=== PATIENT | male | born 1965 | race Caucasian/White ===

== ENCOUNTER → 2018-12-21 | Outpatient (CLI) | payer MEDICARE ==
--- NOTE | 2018-12-21 12:49 | FL ---
Modified barium swallow. HISTORY: Dysphagia. Modified barium swallow was performed with the department of speech pathology. The patient was prese nted with various consistencies of barium. There is no evidence for aspiration or penetration. Full report is to follow from the department of speech pathology. 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
== END ==
LOC: RADFLMAIN 10:27
PROVIDERS: ATTEND Otolaryngology
DX: R13.10 Dysphagia, unspecified (principal)
CPT/HCPCS: 74230

== ENCOUNTER → 2019-05-15 | Outpatient (CLI) | payer MEDICARE ==
[2019-05-15 15:59] LABS: Chol/HDL Ratio 3.17; LDL Cholesterol,Calculated 46.6 mg/dL (0.0-131.0); VLDL Calculation 18.4 mg/dL (5.00-40.00)
== END | disposition home or self-care (01) ==
LOC: LABWHC1 08:36
PROVIDERS: ATTEND Nurse Practitioner Adult Health
DX: E78.2 Mixed hyperlipidemia (principal)
CPT/HCPCS: 36415; 80061; 84450; 84460

== ENCOUNTER → 2021-05-02 | Outpatient (CLI) | payer MEDICARE ==
--- NOTE | 2021-05-05 09:56 | CT ---
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 Delayed scanning through the patient's legs. Coronal/sagittal reconstructions performed. 3-D reconstructions generated on a de dicated independent workstation. CT DLP: 1623.7 mGycm Automated exposure control for dose reduction was used. FINDINGS: Heart normal size without pericardial effusion. Lung bases clear without pleural effusion. Arterial phase imaging of the liver, gallbladder, adrenal glands, kidneys, spleen, and pancreas withi n normal limits. Previous ventral abdominal wall mesh repair. No dilated small bowel, free fluid, or free air. No mesenteric or retroperitoneal lymphadenopathy. Normal appendix. Mild stool burden. No pericolic inflammatory change. Prostate gland measures mildly enlarged at 4.7 cm wide. Multiple pelvic fluid ligaments. No abnormal fluid collection in the pelvis or pelvic lymphadenopathy. Bones: Mild degenerative change of the hips. Osteopenia. Facet arthropathy lower lumbar spine. VASCULATURE: Mild atherosclerotic narrowing at the origin of the bilateral renal arteries. There is an accessory l eft renal artery noted. Possible moderate atherosclerotic narrowing at the origin of the CHAR which re liz patent. There is a distal abdominal bifemoral bypass graft noted. There is occlusion of the [place] left commo n iliac artery but with reconstitution of some of the left internal iliac artery branches. Patent but diminutive [place] right common iliac artery supplies the right internal iliac artery with occlusion of the [place] right external iliac artery. RIGHT: There is mild circumferential narrowing throughout the right iliac bypass graft. [id number] atherosclerotic narrowing at the distal common femoral artery anastomosis. There may be moderate to severe narrowing at the origin of the profunda femoral artery which otherwise remains patent. Mild atherosclerotic narrowing at SFA at the adductor hiatus. Additional scattered mild atherosclerotic calcifications throughout the tibial peroneal trunk and tri furcation vessels. Peroneal artery becomes diminutive at the mid leg and is seen to just above the ankle. Anterior tibia l artery becomes diminutive distal third leg. Runoff is seen via the posterior and anterior tibial ar teries. LEFT: THE iliac artery bypass graft is patent. Mild narrowing at the distal common femoral artery anastomos is. Profunda femoral artery is patent. Mild atherosclerotic narrowing SFA at the adductor hiatus. Popliteal artery is patent. Trifurcation vessels are patent. Mild atherosclerotic narrowing tibial peroneal trunk. Both anterior tibial and peroneal arteries become diminutive at the upper third leg level. There is o pacification just above the ankle. There is runoff via the posterior tibial artery. IMPRESSION: 1. Distal abdominal aortobifemoral bypass graft remains patent. There is development of intimal thick ening causing mild circumferential narrowing throughout the patent right iliac graft. 2. Right: Mild to moderate narrowing at the right common femoral artery anastomosis. Possible moderat e to severe narrowing at the origin of the right profunda femoral artery which otherwise remains [place]. 3. Right: Anterior tibial artery becomes diminutive at the distal third leg. Runoff is seen via the p osterior and anterior tibial arteries. 4. Left: Mild atherosclerotic narrowing at the common femoral artery anastomosis. 5. Left: Both anterior tibial and peroneal arteries become diminutive at the upper third lead level w ith opacification to just above the ankle. There is runoff via the posterior tibial artery.
== END | disposition home or self-care (01) ==
LOC: RADCTMAIN 15:49
PROVIDERS: ATTEND Thoracic Surgery (Cardiothoracic Vascular Surgery)
DX: I70.212 Atherosclerosis of native arteries of extremities with intermittent claudication, left leg (principal); I77.89 Other specified disorders of arteries and arterioles
CPT/HCPCS: 82565; 84520; 75635; 36415; Q9967

== ENCOUNTER → 2022-11-18 | Outpatient (CLI) | payer MEDICARE ==
--- NOTE | 2022-11-18 11:05 | XR ---
EXAMINATION TYPE: XR bone survey complete DATE OF EXAM: 11/18/2022 COMPARISON: CT with runoff 2020. HISTORY: Monoclonal gammopathy. Bony calvarium : 2 views of the bony calvarium demonstrate. No lytic cranial lesion. Chest x-ray: No definitive suspicious focal Lytic rib lesion. Lungs are clear. Spine: Two views of the cervical, thoracic and lumbar spines are submitted. Numerous surgical coils from ventral wall hernia repair surgery overlie the mid to lower abdomen. No definitive suspicious fo hemant lytic lesion in the spine. Vascular calcification and phleboliths overlie the pelvis. There is lo ss of normal cervical curvature. There is moderate spurring and disc space narrowing C5-C6 level. PELVIS: Single view of the pelvis demonstrates. Slightly suboptimal due to lucency from overlying lizbet wel gas. No definitive focal destructive lytic lesion. Vascular calcification and phlebolith overlie the pelvis. Surgical clips bilateral groin region are seen. UPPER EXTREMITIES: Single view of the bilateral upper extremities. No definitive suspicious focal cor tical lytic lesion is present. LOWER EXTREMITIES: 2 views of the lower extremities. No definitive suspicious new focal lytic cortic al lesion. IMPRESSION: No definitive focal suspicious lytic osseous lesion.
[2022-11-18 16:28] LABS: Basophils # (A) 0.11 X 10*3/uL (0.00-0.10); Basophils % (A) 1.4 %; Eosinophils # (A) 0.52 X 10*3/uL (0.04-0.35); Eosinophils % (A) 6.4 %; HCT 44.4 % (39.6-50.0); HGB 14.6 g/dL (13.0-17.0); Immature Grans, Automated 0.4 %; Lymphocytes # (A) 1.45 X 10*3/uL (0.90-5.00); Lymphocytes % (A) 17.9 %; MCH 28.7 pg (27.0-32.0); MCHC 32.9 g/dL (32.0-37.0); MCV 87.4 fL (80.0-97.0); Mean Platelet Volume 10.7 fL (9.5-12.2); Monocytes # (A) 0.65 X 10*3/uL (0.20-1.00); NRBC Per 100 WBC 0 /100 WBCS (0.0-0.0); Neutrophils # (A) 5.36 X 10*3/uL (1.80-7.70); Neutrophils % (A) 65.9 %; Platelet Count 230 X 10*3/uL (140-440); RBC 5.08 X 10*6/uL (4.40-5.60); WBC 8.12 X 10*3/uL (4.50-10.00)
[2022-11-18 17:03] LABS: African American GFR (CKD) 76.8 (60.0-200.0); Anion Gap 8.9 mmol/L (10.00-18.00); BUN/Creat Ratio 7.08 Ratio (12.00-20.00); Blood Urea Nitrogen 8.5 mg/dL (9.0-27.0); Calcium 9.6 mg/dL (8.7-10.3); Carbon Dioxide 29.1 mmol/L (20.0-27.5); Non-African American GFR(CKD) 66.3 (60.0-200.0); Potassium 4.4 mmol/L (3.5-5.5)
== END | disposition home or self-care (01) ==
LOC: LABWHC1 08:52
PROVIDERS: ATTEND Internal Medicine Hematology & Oncology
DX: D47.2 Monoclonal gammopathy (principal); I12.9 Hypertensive chronic kidney disease with stage 1 through stage 4 chronic kidney disease, or unspecified chronic kidney disease; E78.5 Hyperlipidemia, unspecified; N18.9 Chronic kidney disease, unspecified; E55.9 Vitamin D deficiency, unspecified; N40.1 Benign prostatic hyperplasia with lower urinary tract symptoms
CPT/HCPCS: 36415; 77075; 80048; 82306; 83036; 84153; 84450; 84460; 85025

== ENCOUNTER 2024-11-07 10:29 | Emergency (ER) | payer MEDICARE, OTHER ==
[2024-11-07 10:45] VITALS: TEMP 98.9
--- NOTE | 2024-11-07 10:59 | ED ---
Recheck HPI - General Chief Complaint: Recheck/Abnormal Lab/Rx Stated Complaint: low bp Time Seen by Provider: 11/07/24 10:41 Source: patient, RN notes reviewed Mode of arrival: ambulatory Limitations: no limitations - History of Present Illness Initial Comments: This is a 59-year-old male with history of COPD, DM, and hypertension, femoral artery bypass presenting with for orthostasis for the past several weeks. Patient states he suffered a solitary syncopal episode several weeks ago with no subsequent medical evaluation at that time. Patient states he spoke to his PCP Dr. Marcelo who advised holding on use of BP meds (Lopressor, metoprolol) if blood pressure is reading low for the day. Patient states he has an appointment with Dr. Lubin 3 weeks. Patient otherwise denies significant cardiac history or history of AMI. Currently endorses some dyspnea but denies chest pain. Denies fever, chills, BLE edema, abdominal pain, N/V/D. Onset/Timin -: week(s) - Related Data Home Medications Medication Instructions Recorded Confirmed Aspirin EC [Ecotrin] 325 mg PO DAILY 11/07/24 11/07/24 Atorvastatin [Lipitor] 20 mg PO DAILY 11/07/24 11/07/24 Cholecalciferol [Vitamin D3 (25 25 mcg PO DAILY 11/07/24 11/07/24 Mcg = 1000 Iu)] Metoprolol Tartrate [Lopressor] 50 mg PO BID 11/07/24 11/07/24 cilostazoL [Pletal] 100 mg PO BID 11/07/24 11/07/24 lisinopriL [Zestril] 20 mg PO DAILY 11/07/24 11/07/24 Allergies Allergy/AdvReac Type Severity Reaction Status Date / Time Iodinated Contrast Media AdvReac Unknown Verified 11/07/24 11:22 oxycodone [From Percocet] AdvReac Chest Pain Verified 11/07/24 11:22 Review of Systems ROS Statement: Those systems with pertinent positive or pertinent negative responses have been documented in the HPI. ROS Other: All systems not noted in ROS Statement are negative. Past Medical History Past Medical History: COPD, Diabetes Mellitus Past Surgical History: Coronary Bypass/CABG Smoking Status: Former smoker Past Alcohol Use History: Rare Past Drug Use History: None Reported General Exam Limitations: no limitations General appearance: alert, in no apparent distress Head exam: Present: atraumatic, normocephalic, normal inspection Eye exam: Present: normal appearance, PERRL, EOMI. Absent: scleral icterus, conjunctival injection, periorbital swelling ENT exam: Present: normal exam, mucous membranes moist Neck exam: Present: normal inspection. Absent: tenderness, meningismus, lymphadenopathy Respiratory exam: Present: normal lung sounds bilaterally. Absent: respiratory distress, wheezes, rales, rhonchi, stridor, accessory muscle use, decreased breath sounds, prolonged expiratory Cardiovascular Exam: Present: regular rate, normal rhythm, normal heart sounds. Absent: systolic murmur, diastolic murmur, rubs, gallop, clicks GI/Abdominal exam: Present: soft, normal bowel sounds. Absent: distended, tende rness, guarding, rebound, rigid, pulsatile mass Extremities exam: Present: normal inspection, full ROM, normal capillary refill. Absent: tenderness, pedal edema, joint swelling, calf tenderness Back exam: Present: normal inspection Neurological exam: Present: alert, oriented X3, CN II-XII intact Psychiatric exam: Present: normal affect, normal mood Skin exam: Present: warm, dry, intact, normal color. Absent: rash Course Vital Signs 11/07/24 11/07/24 11/07/24 10:41 11:45 13:04 Temperature 98.9 F Pulse Rate 124 H 84 Pulse Rate [ 111 H Right Sitting Pulse Oximetery ] Pulse Rate [ 117 H Right Standing Pulse Oximetery ] Pulse Rate [ 99 Right Supine Pulse Oximetery ] Respiratory 20 18 Rate Blood Pressure 141/91 122/80 Blood Pressure 119/76 [Right Arm Sitting] Blood Pressure 91/69 [Right Arm Standing] Blood Pressure 115/75 [Right Arm Supine] O2 Sat by Pulse 98 97 Oximetry 11/07/24 13:35 Temperature Pulse Rate Pulse Rate [ 93 Right Sitting Pulse Oximetery ] Pulse Rate [ 109 H Right Standing Pulse Oximetery ] Pulse Rate [ 81 Right Supine Pulse Oximetery ] Respiratory Rate Blood Pressure Blood Pressure 151/81 [Right Arm Sitting] Blood Pressure 134/88 [Right Arm Standing] Blood Pressure 129/79 [Right Arm Supine] O2 Sat by Pulse Oximetry Medical Decision Making - Medical Decision Making Was pt. sent in by a medical professional or institution (, PA, CHEMISTRY SPECIALIST, urgent care, hospital, or skilled nursing...) When possible be specific @ -[No] Did you speak to anyone other than the patient for history (EMS, parent, family, police, friend...)? What history was obtained from this source @ -[No] Did you review nursing and triage notes (agree or disagree)? Why? @ -[I reviewed and agree with nursing and triage notes] Were old charts reviewed (outside hosp., previous admission, EMS record, old EKG, old radiological studies, urgent care reports/EKG's, skilled nursing records)? Report findings @ -[No old charts were reviewed] Differential Diagnosis (chest pain, altered mental status, abdominal pain women, abdominal pain men, vaginal bleeding, weakness, fever, dyspnea, syncope, headach e, dizziness, GI bleed, back pain, seizure, CVA, palpatations, mental health, musculoskeletal)? @ -Differential Dizziness: Benign paroxysmal positional Vertigo, Meniere's disease, otitis media, acoustic neuroma, vertebrobasilar insufficiency, cerebellar stroke, encephalitis, hypovolemic, arrhythmia, coronary artery syndrome, anemia, this is not meant to be an all-inclusive list EKG interpreted by me (3pts min.). @ -Sinus tachycardia without ST deviation or T wave inversion. Ventricular rate 102 bpm, THAIS 179 ms, QRS 78 ms, QTc 386 ms. X-rays interpreted by me (1pt min.). @ -[None done] CT interpreted by me (1pt min.). @ -[None done] U/S interpreted by me (1pt. min.). @ -[None done] What testing was considered but not performed or refused? (CT, X-rays, U/S, labs)? Why? @ -[None] What meds were considered but not given or refused? Why? @ -[None] Did you discuss the management of the patient with other professionals (professionals i.e. , PA, CHEMISTRY SPECIALIST, lab, RT, psych nurse, child protective services social worker, fruit tester, teacher, plant protection officer, manager case management)? Give summary @ -[No] Was smoking cessation discussed for >3mins.? @ -[No] Was critical care preformed (if so, how long)? @ -[No] Were there social determinants of health that impacted care today? How? (Homelessness, low income, unemployed, alcoholism, drug addiction, transportation, low edu. Level, literacy, decrease access to med. care, [facility], rehab)? @ -[No] Was there de-escalation of care discussed even if they declined (Discuss DNR or withdrawal of care, Hospice)? DNR status @ -[No] What co-morbidities impacted this encounter? (DM, HTN, Smoking, COPD, CAD, Cancer, CVA, ARF, Chemo, Hep., AIDS, mental health diagnosis, sleep apnea, morbid obesity)? @ -[None] Was patient admitted / discharged? Hospital course, mention meds given and route, prescriptions, significant lab abnormalities, going to OR and other pertinent info. @ -[hospital course] Undiagnosed new problem with uncertain prognosis? @ -[No] Drug Therapy requiring intensive monitoring for toxicity (Heparin, Nitro, Insulin, Cardizem)? @ -[No] Were any procedures done? @ -[No] Diagnosis/symptom? @ -[default] Acute, or Chronic, or Acute on Chronic? @ -Acute Uncomplicated (without systemic symptoms) or Complicated (systemic symptoms)? @ -Complicated Side effects of treatment? @ -[No] Exacerbation, Progression, or Severe Exacerbation? @ -[No] Poses a threat to life or bodily function? How? (Chest pain, [place], [place], pneumonia, PE, COPD, DKA, ARF, appy, cholecystitis, CVA, Diverticulitis, Homicidal, Suicidal, threat to staff... and all critical care pts) @ -[No] - Lab Data Result diagrams: 11/07/24 11:51 11/07/24 11:51 Lab Results 11/07/24 11/07/24 11/07/24 Range/Units 11:51 11:51 11:51 WBC 6.4 (3.8-10.6) k/uL RBC 4.66 (4.30-5.90) m/uL Hgb 13.4 (13.0-17.5) gm/dL Hct 40.5 (39.0-53.0) % MCV 87.0 (80.0-100.0) fL MCH 28.9 (25.0-35.0) pg MCHC 33.2 (31.0-37.0) g/dL RDW 13.8 (11.5-15.5) % Plt Count 184 (150-450) k/uL MPV 7.3 Neutrophils % 73 % Lymphocytes % 15 % Monocytes % 6 % Eosinophils % 4 % Basophils % 1 % Neutrophils # 4.6 (1.3-7.7) k/uL Lymphocytes # 1.0 (1.0-4.8) k/uL Monocytes # 0.4 (0-1.0) k/uL Eosinophils # 0.3 (0-0.7) k/uL Basophils # 0.0 (0-0.2) k/uL PT 10.8 (10.0-12.5) sec INR 1.0 (<1.2) APTT 22.1 (22.0-30.0) sec Sodium 138 (137-145) mmol/L Potassium 3.9 (3.5-5.1) mmol/L Chloride 99 (98-107) mmol/L Carbon Dioxide 33 H (22-30) mmol/L Anion Gap 6 mmol/L BUN 12 (9-20) mg/dL Creatinine 1.17 (0.66-1.25) mg/dL Est GFR (CKD-EPI)AfAm 78 (>60 ml/min/1.73 sqM) Est GFR (CKD-EPI)NonAf 67 (>60 ml/min/1.73 sqM) Glucose 122 H (74-99) mg/dL Calcium 9.5 (8.4-10.2) mg/dL Magnesium 1.7 (1.6-2.3) mg/dL Total Bilirubin 0.6 (0.2-1.3) mg/dL AST 21 (17-59) U/L ALT 20 (4-49) U/L Alkaline Phosphatase 82 (38-126) U/L Troponin I (0.000-0.034) ng/mL Total Protein 6.8 (6.3-8.2) g/dL Albumin 4.0 (3.5-5.0) g/dL 11/07/24 Range/Units 11:51 WBC (3.8-10.6) k/uL RBC (4.30-5.90) m/uL Hgb (13.0-17.5) gm/dL Hct (39.0-53.0) % MCV (80.0-100.0) fL MCH (25.0-35.0) pg MCHC (31.0-37.0) g/dL RDW (11.5-15.5) % Plt Count (150-450) k/uL MPV Neutrophils % % Lymphocytes % % Monocytes % % Eosinophils % % Basophils % % Neutrophils # (1.3-7.7) k/uL Lymphocytes # (1.0-4.8) k/uL Monocytes # (0-1.0) k/uL Eosinophils # (0-0.7) k/uL Basophils # (0-0.2) k/uL PT (10.0-12.5) sec INR (<1.2) APTT (22.0-30.0) sec Sodium (137-145) mmol/L Potassium (3.5-5.1) mmol/L Chloride (98-107) mmol/L Carbon Dioxide (22-30) mmol/L Anion Gap mmol/L BUN (9-20) mg/dL Creatinine (0.66-1.25) mg/dL Est GFR (CKD-EPI)AfAm (>60 ml/min/1.73 sqM) Est GFR (CKD-EPI)NonAf (>60 ml/min/1.73 sqM) Glucose (74-99) mg/dL Calcium (8.4-10.2) mg/dL Magnesium (1.6-2.3) mg/dL Total Bilirubin (0.2-1.3) mg/dL AST (17-59) U/L ALT (4-49) U/L Alkaline Phosphatase (38-126) U/L Troponin I <0.012 (0.000-0.034) ng/mL Total Protein (6.3-8.2) g/dL Albumin (3.5-5.0) g/dL Disposition Clinical Impression: Orthostasis Disposition: HOME SELF-CARE Condition: Good Instructions (If sedation given, give patient instructions): Hypotension (ED) Additional Instructions: Follow-up with PCP for management of antihypertensive medication Is patient prescribed a controlled substance at d/c from ED?: No Referrals: Edil Marcelo DO [Primary Care Provider] - 1-2 days Time of Disposition: 13:51
[2024-11-07] MEDS: SODIUM CHLORIDE 0.9% 1,000 ML IV STA (11:52)
[2024-11-07 12:02] LABS: Basophils % (A) 1 %; Eosinophils # (A) 0.3 k/uL (0-0.7); Eosinophils % (A) 4 %; HCT 40.5 % (39.0-53.0); HGB 13.4 gm/dL (13.0-17.5); Lymphocytes % (A) 15 %; MCH 28.9 pg (25.0-35.0); MCHC 33.2 g/dL (31.0-37.0); Mean Platelet Volume 7.3; Monocytes # (A) 0.4 k/uL (0-1.0); Monocytes % (A) 6 %; Neutrophils # (A) 4.6 k/uL (1.3-7.7); Neutrophils % (A) 73 %; Platelet Count 184 k/uL (150-450); RBC 4.66 m/uL (4.30-5.90); RDW 13.8 % (11.5-15.5); WBC 6.4 k/uL (3.8-10.6)
[2024-11-07 12:19] LABS: ALT 20 U/L (4-49); AST 21 U/L (17-59); African American GFR (CKD) 78 (>60 ml/min/1.73 sqM); Alkaline Phosphatase 82 U/L (38-126); Anion Gap 6 mmol/L; Blood Urea Nitrogen 12 mg/dL (9-20); Calcium 9.5 mg/dL (8.4-10.2); Carbon Dioxide 33 mmol/L (22-30); Chloride 99 mmol/L (98-107); Glucose 122 mg/dL (74-99); Magnesium 1.7 mg/dL (1.6-2.3); Non-African American GFR(CKD) 67 (>60 ml/min/1.73 sqM); Potassium 3.9 mmol/L (3.5-5.1); Sodium 138 mmol/L (137-145); Total Bilirubin 0.6 mg/dL (0.2-1.3); Total Protein 6.8 g/dL (6.3-8.2)
[2024-11-07 12:22] LABS: Partial Thromboplastin Time 22.1 sec (22.0-30.0); Prothrombin Time 10.8 sec (10.0-12.5)
--- NOTE | 2024-11-07 12:22 | XR ---
EXAMINATION TYPE: XR chest 2V DATE OF EXAM: 11/07/2024 CLINICAL INDICATION: Male, 59 years old with history of Orthostasis, dyspnea, TECHNIQUE: Frontal and lateral views of the chest are obtained. COMPARISON: None FINDINGS: There is no focal air space opacity, pleural effusion, or pneumothorax seen. The cardiac silhouette size is within normal limits. The osseous structures are intact. IMPRESSION: No acute cardiopulmonary process. [facility], , 11/07/2024 12:19 PM
[2024-11-07 13:05] VITALS: RESP 18
[2024-11-07 13:36] VITALS: BP 129/79; PULSE 81
== END 2024-11-07 14:13 | disposition home or self-care (01) ==
LOC: EC 10:29
DX: I95.1 Orthostatic hypotension (principal); E11.9 Type 2 diabetes mellitus without complications; J44.9 Chronic obstructive pulmonary disease, unspecified; Z79.899 Other long term (current) drug therapy; Z87.891 Personal history of nicotine dependence; Z88.5 Allergy status to narcotic agent; Z91.041 Radiographic dye allergy status
CPT/HCPCS: 36415; 71046; 80053; 83735; 84484; 85025; 85610; 85730; 96360; 96361; 99285

== ENCOUNTER 2024-11-08 10:44 | Observation (INO) | payer MEDICARE, OTHER ==
--- NOTE | 2024-11-08 11:27 | ED ---
General Adult HPI - General Source: patient, family, RN notes reviewed, old records reviewed Mode of arrival: ambulatory Limitations: no limitations <Gideon Sams - Last Filed: 11/08/24 14:33> <Ronald Shaffer - Last Filed: 11/08/24 17:08> - General Chief complaint: Arrhythmia/Palpitations Stated complaint: Irreg heart rate Time Seen by Provider: 11/08/24 10:55 - History of Present Illness Initial comments: This is a 59-year-old male who presents to the emergency department complaining of being orthostatic hypotensive and tachycardic anytime he gets up and walks around. Patient states this has been ongoing for over a month. Patient states he tried to get into see a mill set up but the appointment is at least 3 weeks away. Patient states he was in the emergency department yesterday and he was orthostatic again in the emergency department and received IV fluids. Patient states when he went home he was taking his blood pressure multiple times and has been low when he has been up and around and his heart rate has been 120 range. Patient denies any chest pain. Patient denies feeling any palpitations. Patient denies fever chills or cough. Patient denies any chest pain or difficulty breathing or shortness of breath. Patient denies decreasing any p.o. fluids or food. (Gideon Sams) - Related Data Home Medications Medication Instructions Recorded Confirmed Aspirin EC [Ecotrin] 325 mg PO DAILY 11/07/24 11/08/24 Atorvastatin [Lipitor] 20 mg PO DAILY 11/07/24 11/08/24 Cholecalciferol [Vitamin D3 (25 25 mcg PO DAILY 11/07/24 11/08/24 Mcg = 1000 Iu)] Metoprolol Tartrate [Lopressor] 50 mg PO BID 11/07/24 11/08/24 cilostazoL [Pletal] 100 mg PO BID 11/07/24 11/08/24 lisinopriL [Zestril] 20 mg PO DAILY 11/07/24 11/08/24 Allergies Allergy/AdvReac Type Severity Reaction Status Date / Time Iodinated Contrast Media AdvReac kidney Verified 11/08/24 14:23 issues oxycodone [From Percocet] AdvReac Chest Pain Verified 11/08/24 14:23 Review of Systems ROS Other: All systems not noted in ROS Statement are negative. <Gideon Sams - Last Filed: 11/08/24 14:33> ROS Other: All systems not noted in ROS Statement are negative. <Ronald Shaffer - Last Filed: 11/08/24 17:08> ROS Statement: Those systems with pertinent positive or pertinent negative responses have been documented in the HPI. Past Medical History Past Medical History: COPD, Diabetes Mellitus, Hypertension History of Any Multi-Drug Resistant Organisms: None Reported Past Surgical History: Coronary Bypass/CABG, Hernia Repair Additional Past Surgical History / Comment(s): femoral arteial bypass graft bilat. cataracts Past Psychological History: No Psychological Hx Reported Smoking Status: Former smoker Past Alcohol Use History: Rare Past Drug Use History: None Reported <Gideon Sams - Last Filed: 11/08/24 14:33> General Exam Limitations: no limitations <Gideon Sams - Last Filed: 11/08/24 14:33> - General Exam Comments Initial Comments: GENERAL: Patient is well-developed and well-nourished. Patient is nontoxic and well- hydrated and is in no acute distress. ENT: Neck is soft and supple. No significant lymphadenopathy is noted. Oropharynx is clear. Moist mucous membranes. Neck has full range of motion without eliciting any pain. EYES: The sclera were anicteric and conjunctiva were pink and moist. Extraocular movements were intact and pupils were equal round and reactive to light. Eyelids were unremarkable. PULMONARY: Unlabored respirations. Good breath sounds bilaterally. No audible rales rhonchi or wheezing was noted. CARDIOVASCULAR: There is a regular rate and rhythm without any murmurs gallops or rubs. ABDOMEN: Soft and nontender with normal bowel sounds. SKIN: Skin is clear with no lesions or rashes and otherwise unremarkable. NEUROLOGIC: Patient is alert and oriented x3. Cranial nerves II through XII are grossly intact. Motor and sensory are also intact. Normal speech, volume and content. Symmetrical smile. MUSCULOSKELETAL: Normal extremities with adequate strength and full range of motion. No lower extremity swelling or edema. No calf tenderness. LYMPHATICS: No significant lymphadenopathy is noted PSYCHIATRIC: Normal psychiatric evaluation. (Gideon Sams) Course Vital Signs 11/08/24 11/08/24 11/08/24 10:45 11:09 11:18 Temperature 98.6 F Pulse Rate 79 85 Pulse Rate [ 81 Sitting Deep Fryer Assembler] Pulse Rate [ 80 Standing Deep Fryer Assembler ] Pulse Rate [ 84 Supine Deep Fryer Assembler] Respiratory 18 Rate Blood Pressure 165/92 Blood Pressure 130/90 [Left Arm Sitting] Blood Pressure 130/83 [Left Arm Standing] Blood Pressure 138/94 [Left Arm Supine] O2 Sat by Pulse 99 Oximetry Medical Decision Making - Lab Data Result diagrams: 11/08/24 11:00 11/08/24 11:00 <Gideon Sams - Last Filed: 11/08/24 14:33> - Lab Data Result diagrams: 11/08/24 11:00 11/08/24 11:00 <Ronald Shaffer - Last Filed: 11/08/24 17:08> - Medical Decision Making EKG is interpreted by myself. EKG shows sinus rhythm with occasional PVC at 75 bpm [place] was 202 QRS 76 QT interval 357 QTc is 386. Patient's EKG shows no ST segment elevation or depression. Was pt. sent in by a medical professional or institution (RAFFY Vasques, CAREERS COUNSELLOR, urgent care, hospital, or jail...) When possible be specific @ -[No] Did you speak to anyone other than the patient for history (EMS, parent, family, police, friend...)? What history was obtained from this source @ -[No] Did you review nursing and triage notes (agree or disagree)? Why? @ -[I reviewed and agree with nursing and triage notes] Were old charts reviewed (outside hosp., previous admission, EMS record, old EKG, old radiological studies, urgent care reports/EKG's, jail records)? Report findings @ -[No old charts were reviewed] Differential Diagnosis? @ -Differential Palpitations Ventricular arrhythmias, atrial arrhythmias, myocardial infarction, anemia, thyrotoxicosis, electrolyte imbalance, hypokalemia, pulmonary embolism, pulmonary disease, drugs, alcohol, anxiety, stress.... This is not meant to be an all-inclusive list. Orthostatic hypotension, vasovagal syncope, dehydration, this is not an all- inclusive list EKG interpreted by me (3pts min.). @ -[As above] X-rays interpreted by me (1pt min.). @ -[None done] CT interpreted by me (1pt min.). @ -[None done] U/S interpreted by me (1pt. min.). @ -[None done] What testing was considered but not performed or refused? (CT, X-rays, U/S, labs)? Why? @ -[None] What meds were considered but not given or refused? Why? @ -[None] Did you discuss the management of the patient with other professionals (professionals i.e. Dr., PA, CAREERS COUNSELLOR, lab, RT, psych nurse, social media specialist, customer support technician, teacher, navigation officer, wrapper caser)? Give summary @ -[No] Was smoking cessation discussed for >3mins.? @ -[No] Was critical care preformed (if so, how long)? @ -[No] Were there social determinants of health that impacted care today? How? (Homelessness, low income, unemployed, alcoholism, drug addiction, transportation, low edu. Level, literacy, decrease access to med. care, [facility], rehab)? @ -[No] Was there de-escalation of care discussed even if they declined (Discuss DNR or withdrawal of care, Hospice)? DNR status @ -[No] What co-morbidities impacted this encounter? (DM, HTN, Smoking, COPD, CAD, Cancer, CVA, ARF, Chemo, Hep., AIDS, mental health diagnosis, sleep apnea, morbid obesity)? @ -[None] Was patient admitted / discharged? Hospital course, mention meds given and route, prescriptions, significant lab abnormalities, going to OR and other pertinent info. @ -Patient was asymptomatic throughout his ED course even with walking around which she insisted would bring his blood pressure down his heart rate up. Patient also was orthostatic negative today. Patient feels uncomfortable going home as does his . Patient will be signed out to Dr. Shaffer at 3 PM (Gideon Sams) Patient signed out to me pending results of CT PE. Briefly, patient presented as a revisit for recurrent orthostatic hypotension symptoms. Has been tachycardic with low blood pressures at home. He has it all documented on paperwork. Was seen yesterday for similar complaints and revisits. Workup was expanded today D-dimer found to be positive and CT PE ordered. CT PE as inte rpreted by myself revealed no evidence of pulmonary embolism but does show bilateral hilar adenopathy. Update the patient. He remains asymptomatic. As this is the second visit, I did discuss with the patient as well as the prior physician who is evaluating him Dr. Fairchild and they had already agreed to admit the patient observation. Cardiology will be consulted. I updated him on the findings of the CT chest including the bilateral hilar adenopathy and a negative pulmonary embolism exam. He expressed understanding. He does follow-up with Dr. Fairchild the office for some blood disorder and therefore Dr. Fairchild will also be consulted. He was in agreement this plan. Spoke with Dr. Cyr who accepted the admission. Diagnosis/symptom? @ -Orthostatic hypotension, tachycardia, hilar adenopathy Acute, or Chronic, or Acute on Chronic? @ -Acute Uncomplicated (without systemic symptoms) or Complicated (systemic symptoms)? @ -Complicated Side effects of treatment? @ -None Exacerbation, Progression, or Severe Exacerbation] @ -No Poses a threat to life or bodily function? @ -Potentially, yes (Ronald Shaffer) - Lab Data Lab Results 11/08/24 11/08/24 11/08/24 Range/Units 11:00 11:00 11:00 WBC 7.6 (3.8-10.6) k/uL RBC 4.64 (4.30-5.90) m/uL Hgb 13.2 (13.0-17.5) gm/dL Hct 40.6 (39.0-53.0) % MCV 87.5 (80.0-100.0) fL MCH 28.4 (25.0-35.0) pg MCHC 32.5 (31.0-37.0) g/dL RDW 14.0 (11.5-15.5) % Plt Count 214 (150-450) k/uL MPV 7.4 Neutrophils % 72 % Lymphocytes % 15 % Monocytes % 6 % Eosinophils % 6 % Basophils % 1 % Neutrophils # 5.5 (1.3-7.7) k/uL Lymphocytes # 1.1 (1.0-4.8) k/uL Monocytes # 0.4 (0-1.0) k/uL Eosinophils # 0.5 (0-0.7) k/uL Basophils # 0.1 (0-0.2) k/uL PT 10.9 (10.0-12.5) sec INR 1.0 (<1.2) APTT 22.5 (22.0-30.0) sec D-Dimer (<0.60) mg/L FEU Sodium 137 (137-145) mmol/L Potassium 3.9 (3.5-5.1) mmol/L Chloride 99 (98-107) mmol/L Carbon Dioxide 30 (22-30) mmol/L Anion Gap 8 mmol/L BUN 10 (9-20) mg/dL Creatinine 0.96 (0.66-1.25) mg/dL Est GFR (CKD-EPI)AfAm >90 (>60 ml/min/1.73 sqM) Est GFR (CKD-EPI)NonAf 86 (>60 ml/min/1.73 sqM) Glucose 130 H (74-99) mg/dL Calcium 9.6 (8.4-10.2) mg/dL Magnesium 1.7 (1.6-2.3) mg/dL Total Bilirubin 0.8 (0.2-1.3) mg/dL AST 28 (17-59) U/L ALT 20 (4-49) U/L Alkaline Phosphatase 76 (38-126) U/L Troponin I (0.000-0.034) ng/mL Total Protein 6.9 (6.3-8.2) g/dL Albumin 4.1 (3.5-5.0) g/dL 11/08/24 11/08/24 Range/Units 11:00 11:00 WBC (3.8-10.6) k/uL RBC (4.30-5.90) m/uL Hgb (13.0-17.5) gm/dL Hct (39.0-53.0) % MCV (80.0-100.0) fL MCH (25.0-35.0) pg MCHC (31.0-37.0) g/dL RDW (11.5-15.5) % Plt Count (150-450) k/uL MPV Neutrophils % % Lymphocytes % % Monocytes % % Eosinophils % % Basophils % % Neutrophils # (1.3-7.7) k/uL Lymphocytes # (1.0-4.8) k/uL Monocytes # (0-1.0) k/uL Eosinophils # (0-0.7) k/uL Basophils # (0-0.2) k/uL PT (10.0-12.5) sec INR (<1.2) APTT (22.0-30.0) sec D-Dimer 1.51 H (<0.60) mg/L FEU Sodium (137-145) mmol/L Potassium (3.5-5.1) mmol/L Chloride (98-107) mmol/L Carbon Dioxide (22-30) mmol/L Anion Gap mmol/L BUN (9-20) mg/dL Creatinine (0.66-1.25) mg/dL Est GFR (CKD-EPI)AfAm (>60 ml/min/1.73 sqM) Est GFR (CKD-EPI)NonAf (>60 ml/min/1.73 sqM) Glucose (74-99) mg/dL Calcium (8.4-10.2) mg/dL Magnesium (1.6-2.3) mg/dL Total Bilirubin (0.2-1.3) mg/dL AST (17-59) U/L ALT (4-49) U/L Alkaline Phosphatase (38-126) U/L Troponin I <0.012 (0.000-0.034) ng/mL Total Protein (6.3-8.2) g/dL Albumin (3.5-5.0) g/dL Disposition <Gideon Sams - Last Filed: 11/08/24 14:33> Time of Disposition: 17:00 <Ronald Shaffer - Last Filed: 11/08/24 17:08> Clinical Impression: Orthostatic hypotension, Hilar adenopathy, Tachycardia Disposition: ADMITTED IP TO THIS [facility] Condition: Stable Referrals: Edil Marcelo DO [Primary Care Provider] - 1-2 days
[2024-11-08 11:33] LABS: Basophils # (A) 0.1 k/uL (0-0.2); Basophils % (A) 1 %; Eosinophils # (A) 0.5 k/uL (0-0.7); Eosinophils % (A) 6 %; HCT 40.6 % (39.0-53.0); HGB 13.2 gm/dL (13.0-17.5); Lymphocytes # (A) 1.1 k/uL (1.0-4.8); Lymphocytes % (A) 15 %; MCH 28.4 pg (25.0-35.0); MCHC 32.5 g/dL (31.0-37.0); MCV 87.5 fL (80.0-100.0); Mean Platelet Volume 7.4; Monocytes # (A) 0.4 k/uL (0-1.0); Monocytes % (A) 6 %; Neutrophils # (A) 5.5 k/uL (1.3-7.7); Neutrophils % (A) 72 %; Platelet Count 214 k/uL (150-450); RBC 4.64 m/uL (4.30-5.90); WBC 7.6 k/uL (3.8-10.6)
[2024-11-08 11:37] LABS: ALT 20 U/L (4-49); African American GFR (CKD) >90 (>60 ml/min/1.73 sqM); Albumin 4.1 g/dL (3.5-5.0); Anion Gap 8 mmol/L; Blood Urea Nitrogen 10 mg/dL (9-20); Calcium 9.6 mg/dL (8.4-10.2); Carbon Dioxide 30 mmol/L (22-30); Chloride 99 mmol/L (98-107); Glucose 130 mg/dL (74-99); Non-African American GFR(CKD) 86 (>60 ml/min/1.73 sqM); Sodium 137 mmol/L (137-145); Total Bilirubin 0.8 mg/dL (0.2-1.3); Total Protein 6.9 g/dL (6.3-8.2)
[2024-11-08 11:39] LABS: AST 28 U/L (17-59); Alkaline Phosphatase 76 U/L (38-126); Magnesium 1.7 mg/dL (1.6-2.3); Partial Thromboplastin Time 22.5 sec (22.0-30.0); Potassium 3.9 mmol/L (3.5-5.1); Prothrombin Time 10.9 sec (10.0-12.5)
[2024-11-08] MEDS: SODIUM CHLORIDE 0.9% 1,000 ML IV STA (11:39)
--- NOTE | 2024-11-08 12:16 | XR ---
EXAMINATION TYPE: XR chest 2V DATE OF EXAM: 11/08/2024 CLINICAL INDICATION: Male, 59 years old with history of dysrhythmia, TECHNIQUE: Frontal and lateral views of the chest are obtained. COMPARISON: Chest x-ray one day earlier FINDINGS: There is no focal air space opacity, pleural effusion, or pneumothorax seen. The cardiac silhouette size is upper limits of normal. The osseous structures are intact. IMPRESSION: No acute cardiopulmonary process. No significant change from one day earlier. [facility], , 11/08/2024 12:14 PM
[2024-11-08] MEDS: diphenhydrAMINE 50 MG/ML 1 ML VIAL IVP STA (14:10)
[2024-11-08] MEDS: methylPREDNISolone SOD SUCCI 125 MG/2 ML VIAL IV STA (14:10)
[2024-11-08] MEDS: FAMOTIDINE 20 MG/2 ML VIAL IV STA (14:10)
--- NOTE | 2024-11-08 15:27 | CT ---
EXAMINATION TYPE: CT chest angio for PE DATE OF EXAM: 11/08/2024 COMPARISON: None CLINICAL INDICATION: Male, 59 years old with history of Elevated D-dimer, tachycardia; PHH, Elevated D-dimer, tachycardia., SOB or PAIN TECHNIQUE: Ct angiogram of the chest performed with with IV Contrast, patient injected with 100 ml mL of Isovue 370. MIP images are created and reviewed. CT DLP: 339.[address] CTDI: mGy Automated exposure control for dose reduction was used. FINDINGS: There are moderate emphysematous changes within upper lobe predominance. There are no suspicious lung masses or nodules. There is no abnormal airspace consolidation or abnormal interstitial density. There is no pleural effusion or pneumothorax. The great vessels the chest is normal and is no filling defect within the pulmonary arterial circulat ion to suggest pulmonary embolism. There is no thoracic aortic aneurysm. There is bilateral hilar adenopathy. There are borderline enlarged lymph nodes in the mediastinum. Th ere is no axillary adenopathy. Limited scanning through the upper abdomen reveals no gross abnormality. There are no focal osseous lesions. IMPRESSION: 1. No evidence of pulmonary embolism. 2. Bilateral hilar adenopathy and borderline lymph nodes in the mediastinum. Findings are suspicious for neoplasm and short-term follow-up is recommended. 3. Moderate emphysematous changes. 4. No lung masses or acute cardiopulmonary disease. [facility], , 11/08/2024 3:25 PM
[2024-11-08] MEDS ORDERED: NALOXONE 0.4 MG/ML 1 ML VIAL IV PRN (16:53)
[2024-11-08] MEDS: SODIUM CHLORIDE 0.9% 1,000 ML IV SCH (20:48)
[2024-11-08] MEDS: METOPROLOL TARTRATE 50 MG TAB PO SCH (21:56)
[2024-11-08] MEDS: cilostazoL 100 MG TAB PO SCH (21:56)
[2024-11-08] MEDS: FAMOTIDINE 20 MG/2 ML VIAL IV SCH (21:57)
[2024-11-08] MEDS: HEPARIN SODIUM,PORCINE 5,000 UNIT/ML 1 ML VIAL SQ SCH (23:19)
[2024-11-09 02:08] VITALS: PULSE 70
[2024-11-09 07:45] VITALS: BP 148/75; RESP 16; TEMP 98.5
[2024-11-09] MEDS ORDERED: DEXTROSE 50% SYRINGE 50 ML IVP PRN ×2 (08:05)
[2024-11-09] MEDS: ASPIRIN 81 MG PO SCH (08:31)
[2024-11-09] MEDS: ATORVASTATIN 20 MG TAB PO SCH (08:31)
[2024-11-09] MEDS: CHOLECALCIFEROL 25 MCG (1000 IU) TABLET PO SCH (08:31)
[2024-11-09] MEDS: lisinopriL 20 MG TAB PO SCH (08:36)
[2024-11-09 08:38] LABS: Basophils # (A) 0.06 X 10*3/uL (0.00-0.10); Basophils % (A) 0.9 %; Eosinophils # (A) 0.36 X 10*3/uL (0.04-0.35); Eosinophils % (A) 5.5 %; HCT 36.2 % (39.6-50.0); Lymphocytes # (A) 1.36 X 10*3/uL (0.90-5.00); Lymphocytes % (A) 20.9 %; MCH 29.6 pg (27.0-32.0); MCHC 33.1 g/dL (32.0-37.0); MCV 89.2 FL (80.0-97.0); Mean Platelet Volume 10.5 FL (9.5-12.2); Monocytes # (A) 0.57 X 10*3/uL (0.20-1.00); Monocytes % (A) 8.7 %; NRBC Per 100 WBC 0 X 10*3/uL (0.00-0.01); Neutrophils # (A) 4.15 X 10*3/uL (1.80-7.70); Neutrophils % (A) 63.7 %; Platelet Count 164 X 10*3/uL (140-440); RBC 4.06 X 10*6/uL (4.40-5.60); RDW 13.9 % (11.5-14.5); WBC 6.52 X 10*3/uL (4.50-10.00)
[2024-11-09] MEDS ORDERED: ASPIRIN 325 MG TAB PO SCH (09:00)
[2024-11-09 09:08] LABS: ALT 16 U/L (10-49); AST 19 U/L (14-35); Albumin 3.3 g/dL (3.8-4.9); Alkaline Phosphatase 84 U/L (41-126); BUN/Creat Ratio 7.82 Ratio (12.00-20.00); Blood Urea Nitrogen 8.6 mg/dL (9.0-27.0); Calcium 8.4 mg/dL (8.7-10.3); Carbon Dioxide 23.8 mmol/L (21.6-31.8); Chloride 108 mmol/L (96-109); Globulin 2.2 g/dL (1.6-3.3); Glucose 85 mg/dL (70-110); Potassium 3.9 mmol/L (3.5-5.5); Sodium 142 mmol/L (135-145); Total Bilirubin 0.4 mg/dL (0.3-1.2); Total Protein 5.5 g/dL (6.2-8.2)
--- NOTE | 2024-11-09 09:50 | P.CRDCN ---
History of Present Illness History of present illness: HISTORY OF PRESENT ILLNESS: This is a 59-year-old male with a past medical history significant for peripheral arterial disease, hypertension, and hyperlipidemia. Patient does not follow with a record systems analyst. We have been asked to see the patient in consultation for orthostatic hypotension. Patient examined at the bedside. Patient states he sees a chemical process analyst once a year as he had a problem with his kidneys after receiving contrast dye. He states that they checked his orthostatic blood pressures in the office and since that time he has been checking them at home. His is at the bedside and states that his blood pressure sometimes going to the 80s and 90s upon standing. The patient reports feeling fatigued. However he denies any other symptoms such as chest pain, shortness of breath, dizziness, or lightheadedness. He does report having an episode of syncope about 3 weeks ago. He states that he saw his primary care physician and was told he should see a record systems analyst but his appointment with Dr. Poon is not for 3 weeks so he decided to come to the hospital. He also reports a history of an aortofemoral bypass about 20 years ago. He states he was told that the right side has since reoccluded. He is a former cigarette smoker and smoked for 35 years. Patient's orthostatic blood pressures have been negative since coming to the hospital. DIAGNOSTICS: - EKG reveals sinus mechanism with no signs of acute ischemia. PVC. - Chest xray negative for acute process - Chest CTA: Negative for pulmonary embolism bilateral hilar adenopathy and borderline lymph nodes in the mediastinum. - Laboratory data: WBC 6. 5 2. Hemoglobin 12.0. Platelet count 164. Sodium 142. Potassium 3.9. BUN 8.6. Creatinine 1.1. TSH 2.830. - Current home cardiac medications include aspirin 325 mg daily, Lipitor 20 mg daily, Pletal 100 mg twice a day, lisinopril 20 mg daily, metoprolol titrate 50 mg twice a day. - No previous echocardiogram, stress test, or cardiac catheterization available in EMR for review REVIEW OF SYSTEMS: At the time of my exam: CONSTITUTIONAL: Denies fever or chills. HEENT: Denies blurred vision, vision changes, or eye pain. Denies hemoptysis CARDIOVASCULAR: Denies chest pain. Denies orthopnea. Denies PND. Denies palpitations RESPIRATORY: Denies shortness of breath. GASTROINTESTINAL: Denies abdominal pain. Denies nausea or vomiting. HEMATOLOGIC: Denies bleeding disorders. GENITOURINARY: Denies any blood in urine. SKIN: Denies pruitis. Denies rash. PHYSICAL EXAM: VITAL SIGNS: Reviewed. GENERAL: Well-developed in no acute distress. HEENT: Head is normocephalic. Pupils are equal, round. Sclerae anicteric. Mucous membranes of the mouth are moist. Neck supple. No JVD or thyromegaly LUNGS: Respirations even and unlabored. Lungs essentially clear to auscultation bilaterally. HEART: Regular rate and rhythm. S1 and S2 heard. ABDOMEN: Soft. Nondistended. Nontender. EXTREMITIES: Normal range of motion. No clubbing or cyanosis. Peripheral pulses intact. No lower extremity edema NEUROLOGIC: Awake and alert. Oriented x 3. ASSESSMENT: Reported orthostatic hypotension at home, however orthostatic blood pressures negative since admission Reported syncope, 3 weeks ago, etiology unclear History of peripheral arterial disease with previous aortofemoral bypass about 20 years ago Hypertension Hyperlipidemia Former nicotine dependence History of acute kidney injury after receiving contrast dye, follows with nephrology outpatient PLAN: Obtain 2D echo to assess cardiac structure and function Decrease aspirin to 81 mg daily Resume home cardiac medications Continue to monitor orthostatic blood pressures Recommend bilateral lower extremity MYRON hose Patient is currently stable from a cardiac standpoint Patient to follow-up postdischarge with Dr. Poon Further recommendations pending patient course Nurse practitioner note has been reviewed by physician. Signing provider agrees with the documented findings, assessment, and plan of care documented by LIVING SPECIALIST as a scribe. Past Medical History Past Medical History: COPD, Diabetes Mellitus, Hypertension Additional Past Medical History / Comment(s): diet controllet History of Any Multi-Drug Resistant Organisms: None Reported Past Surgical History: Hernia Repair Additional Past Surgical History / Comment(s): femoral artery bypass with grafts bilaterally, right groin graft blocked. cataracts Past Anesthesia/Blood Transfusion Reactions: No Reported Reaction Past Psychological History: No Psychological Hx Reported Smoking Status: Former smoker Past Alcohol Use History: Rare Past Drug Use History: None Reported Medications and Allergies Home Medications Medication Instructions Recorded Confirmed Type Aspirin EC [Ecotrin] 325 mg PO DAILY 11/07/24 11/08/24 History Atorvastatin [Lipitor] 20 mg PO DAILY 11/07/24 11/08/24 History Cholecalciferol [Vitamin D3 (25 25 mcg PO DAILY 11/07/24 11/08/24 History Mcg = 1000 Iu)] Metoprolol Tartrate [Lopressor] 50 mg PO BID 11/07/24 11/08/24 History cilostazoL [Pletal] 100 mg PO BID 11/07/24 11/08/24 History lisinopriL [Zestril] 20 mg PO DAILY 11/07/24 11/08/24 History Allergies Allergy/AdvReac Type Severity Reaction Status Date / Time Iodinated Contrast Media AdvReac kidney Verified 11/08/24 14:23 issues oxycodone [From Percocet] AdvReac Chest Pain Verified 11/08/24 14:23 Physical Exam Vitals: Vital Signs Temp Pulse Pulse Pulse Pulse Pulse Pulse 11/09/24 07:05 98.5 F 70 11/09/24 01:43 97.9 F 70 11/08/24 20:35 98.1 F 74 80 72 11/08/24 20:11 98.3 F 90 11/08/24 17:00 78 11/08/24 11:18 85 11/08/24 11:09 81 11/08/24 10:45 98.6 F 79 Pulse Pulse Resp BP BP BP BP 11/09/24 07:05 16 11/09/24 01:43 18 11/08/24 20:35 18 11/08/24 20:11 18 138/84 11/08/24 17:00 17 141/83 11/08/24 11:18 11/08/24 11:09 80 84 130/90 130/83 138/94 11/08/24 10:45 18 165/92 BP BP BP BP Pulse Ox 11/09/24 07:05 148/75 97 11/09/24 01:43 117/71 95 11/08/24 20:35 159/88 144/85 154/83 99 11/08/24 20:11 99 11/08/24 17:00 99 11/08/24 11:18 11/08/24 11:09 11/08/24 10:45 99 Intake and Output 11/08/24 11/09/24 11/09/24 22:59 06:59 14:59 Other: Voiding Method Toilet # Voids 1 3 Weight 81.647 kg Results 11/09/24 04:53 11/09/24 04:53 Cardiac Enzymes 11/08/24 11/08/24 Range/Units 11:00 11:00 AST 28 (17-59) U/L Troponin I <0.012 (0.000-0.034) ng/mL Coagulation 11/08/24 Range/Units 11:00 PT 10.9 (10.0-12.5) sec APTT 22.5 (22.0-30.0) sec CBC 11/08/24 Range/Units 11:00 WBC 7.6 (3.8-10.6) k/uL RBC 4.64 (4.30-5.90) m/uL Hgb 13.2 (13.0-17.5) gm/dL Hct 40.6 (39.0-53.0) % Plt Count 214 (150-450) k/uL Comprehensive Metabolic Panel 11/08/24 Range/Units 11:00 Sodium 137 (137-145) mmol/L Potassium 3.9 (3.5-5.1) mmol/L Chloride 99 (98-107) mmol/L Carbon Dioxide 30 (22-30) mmol/L BUN 10 (9-20) mg/dL Creatinine 0.96 (0.66-1.25) mg/dL Glucose 130 H (74-99) mg/dL Calcium 9.6 (8.4-10.2) mg/dL AST 28 (17-59) U/L ALT 20 (4-49) U/L Alkaline Phosphatase 76 (38-126) U/L Total Protein 6.9 (6.3-8.2) g/dL Albumin 4.1 (3.5-5.0) g/dL Current Medications Generic Name Dose Route Start Last Admin Trade Name Freq PRN Reason Stop Dose Admin Aspirin 325 mg 11/09/24 09:00 Aspirin 325 Mg Tab PO DAILY [facility] Atorvastatin Calcium 20 mg 11/09/24 09:00 Atorvastatin 20 Mg Tab PO DAILY [facility] Cholecalciferol 25 mcg 11/09/24 09:00 Cholecalciferol 25 Mcg (1000 Iu) Tablet PO DAILY [facility] Cilostazol 100 mg 11/08/24 21:00 11/08/24 21:56 Cilostazol 100 Mg Tab PO 100 mg BID [facility] Administration Famotidine 20 mg 11/08/24 21:00 11/08/24 21:57 Famotidine 20 Mg/2 Ml Vial IV 20 mg Q12HR [facility]E Administration Heparin Sodium (Porcine) 5,000 unit 11/09/24 00:00 11/08/24 23:19 Heparin Sodium,Porcine 5,000 Unit/Ml 1 Ml Vial SQ 5,000 unit Q8HR ALEE Administration Sodium Chloride 1,000 mls @ 75 mls/hr 11/08/24 17:15 11/09/24 06:51 Saline 0.9% IV 75 mls/hr .[id number] ALEE Administration Lisinopril 20 mg 11/09/24 09:00 Lisinopril 20 Mg Tab PO DAILY [facility] Metoprolol Tartrate 50 mg 11/08/24 21:00 11/08/24 21:56 Metoprolol Tartrate 50 Mg Tab PO 50 mg BID [facility]E Administration Naloxone HCl 0.2 mg 11/08/24 16:53 Naloxone 0.4 Mg/Ml 1 Ml Vial IV Q2M PRN Opioid Reversal Intake and Output 11/08/24 11/09/24 11/09/24 22:59 06:59 14:59 Other: Voiding Method Toilet # Voids 1 3 Weight 81.647 kg 11/08/24 11:00 11/08/24 11:00
--- NOTE | 2024-11-09 11:05 | CA ---
Transthoracic Echo Report Name: Thad Mohan Age: 59 Gender: M : 1965 Exam Date: 11/09/2024 08:48 Exam Location: [facility] Ht (in): 72 Wt (lb): 180 Ordering Physician: Angelica Mac Attending/Referring Phys: Deck Lid Fitter Ava Johnson, MANUEL Procedure CPT: Indications: LV function, labile blood pressures Cardiac Hx: COPD, Diabetes, HTN, CABG Technical Quality: Good Contrast 1: Total Dose (mL): Contrast 2: Total Dose (mL): MEASUREMENTS (Male / Female) Normal Values 2D ECHO LV Diastolic Diameter PLAX 4.3 cm 4.2 - 5.9 / 3.9 - 5.3 cm LV Systolic Diameter PLAX 3.3 cm IVS Diastolic Thickness 1.0 cm 0.6 - 1.0 / 0.6 - 0.9 cm LVPW Diastolic Thickness 1.0 cm 0.6 - 1.0 / 0.6 - 0.9 cm LV Relative Wall Thickness 0.5 RV Internal Dim ED PLAX 3.2 cm LVOT Diameter 2.0 cm LA Systolic Diameter LX 3.5 cm 3.0 - 4.0 / 2.7 - 3.8 cm LV Diastolic Volume MOD 4C 79.0 cm??? LV Systolic Volume MOD 4C 34.1 cm??? LV Ejection Fraction MOD 4C 56.9 % LV Cardiac Index MOD 4C 1628.8 cm???/min???m??? LV Diastolic Length 4C 8.4 cm LV Systolic Length 4C 6.8 cm LV Diastolic Volume MOD 2C 79.0 cm??? LV Systolic Volume MOD 2C 34.1 cm??? LV Ejection Fraction MOD 2C 56.9 % LV Cardiac Index MOD 2C 1628.8 cm???/min???m??? LV Diastolic Length 2C 8.4 cm LV Systolic Length 2C 6.8 cm LA Volume 35.4 cm??? 18 - 58 / 22 - 52 cm??? LA Volume Index 17.4 cm???/m??? 16 - 28 cm???/m??? DOPPLER MV Area PHT 3.7 cm??? Mitral E Point Velocity 64.3 cm/s Mitral A Point Velocity 69.7 cm/s Mitral E to A Ratio 0.9 MV Deceleration Time 203.8 ms TR Peak Velocity 215.7 cm/s TR Peak Gradient 18.6 mmHg Right Atrial Pressure 5.0 mmHg Pulmonary Artery Systolic Pressu 23.6 mmHg Right Ventricular Systolic Press 23.6 mmHg FINDINGS Left Ventricle Left ventricular ejection fraction is estimated at 60 %. Normal Left ventricular size, wall thickness, systolic function with no obvious regional wall motion abnormalities. Left ventricular wall thickness normal. Right Ventricle Mild right ventricular dilatation. Normal right ventricular function. Right ventricular systolic pressure within normal limits. Right Atrium Normal right atrial size. Left Atrium Normal left atrial size. Mitral Valve Structurally normal mitral valve. No mitral stenosis. Trace mitral regurgitation. Aortic Valve Trileaflet aortic valve. Aortic valve sclerosis. No aortic valve stenosis or regurgitation. Tricuspid Valve Structurally normal tricuspid valve. No tricuspid stenosis. Trace tricuspid regurgitation. Pulmonic Valve Structurally normal pulmonic valve. No pulmonic stenosis. No pulmonic regurgitation. Pericardium No pericardial effusion. No pleural effusion. Aorta Normal size aortic root and proximal ascending aorta. CONCLUSIONS Normal LV function Previewed by: Dr. Prashanth Rosales MD (Electronically Signed) Final Date: 09 November 2024 11:04
--- NOTE | 2024-11-09 11:45 | P.HPIM ---
History of Present Illness H&P Date: 11/09/24 Patient is a 59-year-old male with a history of hypertension and peripheral artery disease came to the ER yesterday because of concerns regarding orthostatic vitals and tachycardia. Per patient, he has been experiencing intermittent orthostatic hypotension at home associated with tachycardia for the last 3 weeks. Patient denies any chest pain, shortness of breath, PND, orthopnea, swelling of legs. Patient denies any dizziness, generalized weakness, numbness or tingling in upper or lower extremities. However, patient does complain of mild headache. Patient reports that he has been following oncologist Dr. Fairchild yearly for blood disorder diagnosed 3 years ago. As per patient, this has been stable. Patient denies any diarrhea, constipation, abdominal discomfort. Initial lab work in the ER shows WBC 7.6, hemoglobin 13.2, MCV 87.5, platelet count 214, sodium 137, potassium 3.9, BUN 10, creatinine 0.96, glucose 130, HbA1c 5.3, AST 20, ALT 20, troponin I less than 0.012, cortisol 8.4, TSH 2.83, D-dimer 1.51 Chest CTA done in the ER shows no evidence of pulm embolism, hide bilateral hil ar adenopathy and borderline lymph nodes in the mediastinum were noted. No other lung mass or acute cardiopulmonary disease noted. Chest x-ray shows no acute cardiopulmonary process EKG shows normal sinus rhythm with occasional PVCs with ventricular rate of 75 bpm, AK interval 202 ms, QRS duration 76, QTc 386 ms, normal R wave progression. Vital signs on arrival temperature 98.6 F, heart rate 79, blood pressure 162/92, oxygen saturation 90% room air Orthostatic vitals blood pressure on supine 138/94, blood pressure on sitting 130/90, blood pressure on standing 130/83 Orthostatic vitals blood pressure supine 154/83, blood pressure on sitting 159/88, blood pressure on standing 144/85 Review of systems: Pertinent positives and negatives as discussed in HPI, a complete review of systems was performed and all other systems are negative. Social history: Former heavy smoker, quit 15 years ago Alcohol occasionally, no illicit drug use Physical examination: Vital signs reviewed General: non toxic, no distress, appears at stated age, normal weight Derm: no unusual rashes/lesions, warm Head: atraumatic, normocephalic, symmetric Eyes: EOMI, no lid lag, anicteric sclera, pupils equal round reactive to light ENT: Nose and ears atraumatic Neck: No cervical lymphadenopathy, trachea midline, supple Mouth: no lip lesion, mucus membranes moist Cardiovascular: S1S2 reg, no murmur, positive dorsalis pedis pulse bilateral, no edema Lungs: CTA bilateral, no rhonchi, no rales, no accessory muscle use Abdominal: soft, nontender to palpation, no guarding Ext: muscle strength 5 out of 5 in all 4 extremities grossly, no gross muscle atrophy, no contractures, Neuro: CN II-XI grossly intact, no gross focal neuro deficits Psych: Alert, oriented, appropriate affect Assessment/Plan: This is a Patient is a 59-year-old male with a history of hypertension and peripheral artery disease came to the ER yesterday because of concerns regarding orthostatic vitals and tachycardia. . Case was discussed with the Emergency Room provider and decision was made to admit the patient for orthostatic hypo tension concerning cardiac etiology. Labs and images: Initial lab work in the ER shows WBC 7.6, hemoglobin 13.2, MCV 87.5, platelet count 214, sodium 137, potassium 3.9, BUN 10, creatinine 0.96, glucose 130, HbA1c 5.3, AST 20, ALT 20, troponin I less than 0.012, cortisol 8.4, TSH 2.83, D-dimer 1.51 Chest CTA done in the ER shows no evidence of pulm embolism, hide bilateral hilar adenopathy and borderline lymph nodes in the mediastinum were noted. No other lung mass or acute cardiopulmonary disease noted. Chest x-ray shows no acute cardiopulmonary process EKG shows normal sinus rhythm with occasional PVCs with ventricular rate of 75 bpm, AK interval 202 ms, QRS duration 76, QTc 386 ms, normal R wave progression. Vital signs on arrival temperature 98.6 F, heart rate 79, blood pressure 162 /92, oxygen saturation 90% room air Orthostatic vitals blood pressure on supine 138/94, blood pressure on sitting 130/90, blood pressure on standing 130/83 Orthostatic vitals blood pressure supine 154/83, blood pressure on sitting 159/88, blood pressure on standing 144/85 Active: #Intermittent orthostatic hypotension at home, rule out cardiac etiology versus endocrine Orthostatic vital signs unremarkable as noted above Consult cardiology Order echocardiogram Echocardiogram shows normal LV function with LVEF of 60%. No cardiac structural abnormality identified. Patient received 1 L bolus of normal saline in the ER Order a.m. cortisol and TSH; cortisol and TSH are normal #Elevated D-dimers Rule out pulmonary embolism CTA of chest negative for pulmonary embolism #Bilateral hilar lymphadenopathy CTA chest findings as noted above Consult oncology, Note reviewed, patient to follow-up with a CAT scan of the lung in outpatient setting #Hyperglycemia Accu-Cheks insulin scale insulin Check HbA1c HbA1c 5.3% Chronic conditions: Hypertension, hyperlipidemia, peripheral vascular disease Resume aspirin, Lipitor, lisinopril, Lopressor DVT prophylaxis: Heparin 5000 units subcu every 8 hours GI prophylaxis: IV Pepcid 20 mg every 12 hour F: As needed E: Replete as needed N: Heart healthy diet A: Ambulatory The patient is admitted with an anticipated less than than 2 midnight stay for evaluation of orthostatic hypotension CODE STATUS: Full code Discussed with: Patient Anticipated discharge place: Pending clinical course Dictation was produced using [employer] dictation software. Please excuse any grammatical, word or spelling errors. Attestation Attestation/ Mechanical Engineering Technician Note: Attestation to History and physical, Participation I saw and evaluated the patient with the Resident, and I reviewed and discussed the patient with the Resident and agree with the Resident's findings and plans as documented above., management reviewed and discussed, I agree with findings & plan, Provider Signature : DONAVAN SAUNDERS MD Past Medical History Past Medical History: COPD, Diabetes Mellitus, Hypertension Additional Past Medical History / Comment(s): diet controllet History of Any Multi-Drug Resistant Organisms: None Reported Past Surgical History: Hernia Repair Additional Past Surgical History / Comment(s): femoral artery bypass with grafts bilaterally, right groin graft blocked. cataracts Past Anesthesia/Blood Transfusion Reactions: No Reported Reaction Past Psychological History: No Psychological Hx Reported Smoking Status: Former smoker Past Alcohol Use History: Rare Past Drug Use History: None Reported Medications and Allergies Home Medications Medication Instructions Recorded Confirmed Type Aspirin EC [Ecotrin] 325 mg PO DAILY 11/07/24 11/08/24 History Atorvastatin [Lipitor] 20 mg PO DAILY 11/07/24 11/08/24 History Cholecalciferol [Vitamin D3 (25 25 mcg PO DAILY 11/07/24 11/08/24 History Mcg = 1000 Iu)] Metoprolol Tartrate [Lopressor] 50 mg PO BID 11/07/24 11/08/24 History cilostazoL [Pletal] 100 mg PO BID 11/07/24 11/08/24 History lisinopriL [Zestril] 20 mg PO DAILY 11/07/24 11/08/24 History Allergies Allergy/AdvReac Type Severity Reaction Status Date / Time Iodinated Contrast Media AdvReac kidney Verified 11/08/24 14:23 issues oxycodone [From Percocet] AdvReac Chest Pain Verified 11/08/24 14:23 Physical Exam Vitals: Vital Signs Temp Pulse Pulse Pulse Pulse Pulse Resp 11/09/24 07:05 98.5 F 70 16 11/09/24 01:43 97.9 F 70 18 11/08/24 20:35 98.1 F 74 80 72 18 11/08/24 20:11 98.3 F 90 18 11/08/24 17:00 78 17 BP BP BP BP BP Pulse Ox 11/09/24 07:05 148/75 97 11/09/24 01:43 117/71 95 11/08/24 20:35 159/88 144/85 154/83 99 11/08/24 20:11 138/84 99 11/08/24 17:00 141/83 99 Intake and Output 11/08/24 11/09/24 11/09/24 22:59 06:59 14:59 Other: Voiding Method Toilet Toilet # Voids 1 3 Weight 81.647 kg Results CBC & Chem 7: 11/09/24 04:53 11/09/24 04:53 Labs: Abnormal Lab Results - Last 24 Hours (Table) 11/08/24 11/08/24 11/09/24 Range/Units 11:00 11:00 04:53 RBC 4.06 L (4.40-5.60) X 10*6/uL Hgb 12.0 L (13.0-17.0) g/dL Hct 36.2 L (39.6-50.0) % Eosinophils # 0.36 H (0.04-0.35) X 10*3/uL D-Dimer 1.51 H (<0.60) mg/L FEU BUN (9.0-27.0) mg/dL BUN/Creatinine Ratio (12.00-20.00) Ratio Glucose 130 H (74-99) mg/dL Calcium (8.7-10.3) mg/dL Total Protein (6.2-8.2) g/dL Albumin (3.8-4.9) g/dL Albumin/Globulin Ratio (1.60-3.17) Ratio // Range/Units 04:53 RBC (4.40-5.60) X 10*6/uL Hgb (13.0-17.0) g/dL Hct (39.6-50.0) % Eosinophils # (0.04-0.35) X 10*3/uL D-Dimer (<0.60) mg/L FEU BUN 8.6 L (9.0-27.0) mg/dL BUN/Creatinine Ratio 7.82 L (12.00-20.00) Ratio Glucose (74-99) mg/dL Calcium 8.4 L (8.7-10.3) mg/dL Total Protein 5.5 L (6.2-8.2) g/dL Albumin 3.3 L (3.8-4.9) g/dL Albumin/Globulin Ratio 1.50 L (1.60-3.17) Ratio Thrombosis Risk Factor Assmnt - Choose All That Apply Any of the Below Risk Factors Present?: Yes Each Factor Represents 1 point: Abnormal pulmonary function (COPD), Age 41-60 years Thrombosis Risk Factor Assessment Total Risk Factor Score: 2 Thrombosis Risk Factor Assessment Level: Low Risk
--- NOTE | 2024-11-09 11:49 | P.DS ---
Providers Date of admission: 11/08/24 17:05 Attending physician: Sravan Cyr MD Consults: 11/08/24 16:53 Consult Physician Routine Consulting Provider: [facility] Consult Reason/Comments: intermittent orthostatic hypotension symptoms/tachycardia Do you want consulting provider notified?: Yes Consult Physician Routine Consulting Provider: Jc Fairchild Consult Reason/Comments: hilar adenopathy. follows with jack in office Do you want consulting provider notified?: Yes Primary care physician: [facility] Course: Discharge diagnosis: #Orthostatic hypotension at home with negative orthostatic vitals at admission #Elevated D-dimer, pulmonary embolism ruled out Hospital Course: Patient is a 59-year-old male with a history of hypertension and peripheral artery disease came to the ER yesterday because of concerns regarding orthostatic vitals and tachycardia. Per patient, he has been experiencing intermittent orthostatic hypotension at home associated with tachycardia for the last 3 weeks. Patient denies any chest pain, shortness of breath, PND, orthopnea, swelling of legs. Patient denies any dizziness, generalized weakness, numbness or tingling in upper or lower extremities. However, patient does complain of mild headache. Patient reports that he has been following oncologist Dr. Fairchild yearly for blood disorder diagnosed 3 years ago. As per patient, this has been stable. Patient denies any diarrhea, constipation, abdominal discomfort. Initial lab work in the ER shows WBC 7.6, hemoglobin 13.2, MCV 87.5, platelet count 214, sodium 137, potassium 3.9, BUN 10, creatinine 0.96, glucose 130, HbA1c 5.3, AST 20, ALT 20, troponin I less than 0.012, cortisol 8.4, TSH 2.83, D-dimer 1.51 Chest CTA done in the ER shows no evidence of pulm embolism, hide bilateral hilar adenopathy and borderline lymph nodes in the mediastinum were noted. No other lung mass or acute cardiopulmonary disease noted. Chest x-ray shows no acute cardiopulmonary process EKG shows normal sinus rhythm with occasional PVCs with ventricular rate of 75 bpm, LA interval 202 ms, QRS duration 76, QTc 386 ms, normal R wave progression. Vital signs on arrival temperature 98.6 F, heart rate 79, blood pressure 162/92, oxygen saturation 90% room air Orthostatic vitals blood pressure on supine 138/94, blood pressure on sitting 130/90, blood pressure on standing 130/83 Orthostatic vitals blood pressure supine 154/83, blood pressure on sitting 159/88, blood pressure on standing 144/85 Cardiology consulted. Echocardiogram shows normal LV function with LVEF of 60%. No cardiac structure abnormalities identified. Patient is hemodynamically stable and medically optimized for discharge. Discharge disposition: Home self-care Vital signs reviewed. Gen: in no apparent distress, resting comfortably in bed Eyes: PERRLA, EOMI, no scleral injection or icterus HENT: normocephalic, atraumatic, good hearing acuity, moist mucous membranes Neck: full range of motion Resp: CTAB, no rales, rhonchi, or wheezes CVS: normal S1 and S2, no murmurs, rubs or gallops, no edema GI: soft, NTTP, ND, no hepatosplenomegaly : no suprapubic tenderness, no CVAT, mendez catheter is not present MSK: no clubbing, no cyanosis, no noted contractures of extremities Skin: no noted rashes, petechiae; temperature of skin is appropriate Neuro: moving all extremities without signs of weakness, CN II-XII intact Psych: cooperative, euthymic mood, insight and judgment intact Dictation was produced using [employer] dictation software. Please excuse any grammatical, word or spelling errors. Attestation Attestation/ Mushroom Cutter Note: Attestation to D/C Summary, Participation I saw and evaluated the patient with the Resident, and I reviewed and discussed the patient with the Resident and agree with the Resident's findings and plans as documented above, management reviewed and discussed, I agree with findings & plan, Provider Signature - DONAVAN SAUNDERS MD Plan - Discharge Summary New Discharge Prescriptions: Continue lisinopriL [Zestril] 20 mg PO DAILY Metoprolol Tartrate [Lopressor] 50 mg PO BID cilostazoL [Pletal] 100 mg PO BID Cholecalciferol [Vitamin D3 (25 Mcg = 1000 Iu)] 25 mcg PO DAILY Atorvastatin [Lipitor] 20 mg PO DAILY Aspirin EC [Ecotrin] 325 mg PO DAILY Discharge Medication List Aspirin EC [Ecotrin] 325 mg PO DAILY 11/07/24 [History] Atorvastatin [Lipitor] 20 mg PO DAILY 11/07/24 [History] Cholecalciferol [Vitamin D3 (25 Mcg = 1000 Iu)] 25 mcg PO DAILY 11/07/24 [History] Metoprolol Tartrate [Lopressor] 50 mg PO BID 11/07/24 [History] cilostazoL [Pletal] 100 mg PO BID 11/07/24 [History] lisinopriL [Zestril] 20 mg PO DAILY 11/07/24 [History] Follow up Appointment(s)/Referral(s): Edil Marcelo DO [Primary Care Provider] - 1-2 days Brayan Escobar MD [STAFF PHYSICIAN] - 1 Week Prashanth Rosales MD [STAFF PHYSICIAN] - 1 Week Patient Instructions/Handouts: Syncope (DC), Hypotension (DC), Syncope in Older Adults (DC) Activity/Diet/Wound Care/Special Instructions: Please follow-up with your primary care provider and cardiology within 1 to 2 weeks. Discharge Disposition: HOME SELF-CARE
[2024-11-09] MEDS ORDERED: INSULIN LISPRO (HumaLOG) 100 UNIT/ML 10 mL VL SQ SCH (12:30)
--- NOTE | 2024-11-09 16:58 | P.CONS ---
History of Present Illness - Reason for Consult Consult date: 11/09/24 lymphadenopathy Requesting physician: Ronald Shaffer - Chief Complaint dizzines, hypotension - History of Present Illness Patient is a 59 year old male with a history of hypertension, hyperlipidemia, chronic kidney disease, and MGUS who follows with Dr. Fairchild. Labs ordered by nephrology in 10/07 had shown an IgG monoclonal protein with lambda light chain specificity. Serum light chains actually showed mild elevation of kappa light chain at 29.3 mg/L with lambda light chain just within the normal range at 26.2. The ratio was normal at 1.12. Urine immunofixation was negative. CBC showed hemoglobin 13.1, WBC 8.5 and platelets 200 iron studies were normal. The sara machuca was therefore referred here for further evaluation and recommendations. He denied any prior history of blood related problems, malignancy, or autoimmune disease. He denied any B symptoms. The renal ultrasound in 07/06 was unremarkable. The patient had additional workup done including 24-hour urine studies and bone survey. These did not show any evidence of more advanced disease, confirming a MGUS. he was therefore placed on observation M-spike has been stable at 0.4, and k/l ratio at 1.03. He has scheduled f/u on 11/17/[address] Fairchild Patient presented to the emergency room with complaints of dizziness. He was reporting upon standing he was experiencing orthostatic hypotension with associated tachycardia. D-dimer was elevated at 1.51, CTA was subsequently obtained which was negative for pulmonary embolism. Bilateral hilar adenopathy was noted with borderline lymph nodes in the mediastinum. Moderate emphysematous changes. No lung masses or acute cardiopulmonary disease noted. Cardiology is following and patient is undergoing cardiac workup. Troponin negative. CBC stable, WBC 6.5, hemoglobin 12.0, platelets 164,000. Patient denies any recent sicknesses or vaccines. Denies night sweats. Does report his appetite and weight fluctuates, recently was 165 pounds but states appetite has significantly improved and is back to his baseline weight of 180 pounds. Rock mack has a history of 35 pack year smoker, quitting 20 years ago. Denies hemoptysis. Review of Systems 10 point ROS is negative except as stated in the HPI Past Medical History Past Medical History: COPD, Diabetes Mellitus, Hypertension Additional Past Medical History / Comment(s): diet controllet History of Any Multi-Drug Resistant Organisms: None Reported Past Surgical History: Hernia Repair Additional Past Surgical History / Comment(s): femoral artery bypass with grafts bilaterally, right groin graft blocked. cataracts Past Anesthesia/Blood Transfusion Reactions: No Reported Reaction Past Psychological History: No Psychological Hx Reported Smoking Status: Former smoker Past Alcohol Use History: Rare Past Drug Use History: None Reported Medications and Allergies Home Medications Medication Instructions Recorded Confirmed Type Aspirin EC [Ecotrin] 325 mg PO DAILY 11/07/24 11/08/24 History Atorvastatin [Lipitor] 20 mg PO DAILY 11/07/24 11/08/24 History Cholecalciferol [Vitamin D3 (25 25 mcg PO DAILY 11/07/24 11/08/24 History Mcg = 1000 Iu)] Metoprolol Tartrate [Lopressor] 50 mg PO BID 11/07/24 11/08/24 History cilostazoL [Pletal] 100 mg PO BID 11/07/24 11/08/24 History lisinopriL [Zestril] 20 mg PO DAILY 11/07/24 11/08/24 History Allergies Allergy/AdvReac Type Severity Reaction Status Date / Time Iodinated Contrast Media AdvReac kidney Verified 11/08/24 14:23 issues oxycodone [From Percocet] AdvReac Chest Pain Verified 11/08/24 14:23 Physical Exam Vitals: Vital Signs Temp Pulse Pulse Pulse Pulse Pulse Resp 11/09/24 07:05 98.5 F 70 16 11/09/24 01:43 97.9 F 70 18 11/08/24 20:35 98.1 F 74 80 72 18 11/08/24 20:11 98.3 F 90 18 11/08/24 17:00 78 17 BP BP BP BP BP Pulse Ox 11/09/24 07:05 148/75 97 11/09/24 01:43 117/71 95 11/08/24 20:35 159/88 144/85 154/83 99 11/08/24 20:11 138/84 99 11/08/24 17:00 141/83 99 Intake and Output 11/08/24 11/09/24 11/09/24 22:59 06:59 14:59 Other: Voiding Method Toilet Toilet # Voids 1 3 Weight 81.647 kg - Constitutional General appearance: average body habitus, no acute distress - EENT Eyes: anicteric sclerae, EOMI ENT: hearing grossly normal - Neck Neck: no lymphadenopathy - Respiratory breathing is even and unlabored Respiratory: bilateral: CTA - Cardiovascular Rhythm: regular - Gastrointestinal General gastrointestinal: soft, no tenderness - Integumentary Integumentary: no cyanotic, no jaundiced - Musculoskeletal Musculoskeletal: strength equal bilaterally - Psychiatric Psychiatric: A&O x's 3 Results CBC & Chem 7: 11/09/24 04:53 11/09/24 04:53 Labs: Abnormal Lab Results - Last 24 Hours (Table) 11/08/24 11/09/24 11/09/24 Range/Units 11:00 04:53 04:53 RBC 4.06 L (4.40-5.60) X 10*6/uL Hgb 12.0 L (13.0-17.0) g/dL Hct 36.2 L (39.6-50.0) % Eosinophils # 0.36 H (0.04-0.35) X 10*3/uL D-Dimer 1.51 H (<0.60) mg/L FEU BUN 8.6 L (9.0-27.0) mg/dL BUN/Creatinine Ratio 7.82 L (12.00-20.00) Ratio Calcium 8.4 L (8.7-10.3) mg/dL Total Protein 5.5 L (6.2-8.2) g/dL Albumin 3.3 L (3.8-4.9) g/dL Albumin/Globulin Ratio 1.50 L (1.60-3.17) Ratio Chest x-ray: report reviewed CT scan - chest: report reviewed Assessment and Plan (1) Hilar adenopathy Status: Acute Code(s): R59.0 - LOCALIZED ENLARGED LYMPH NODES SNOMED Code(s): 97584743 (2) Orthostasis Status: Acute Code(s): I95.1 - ORTHOSTATIC HYPOTENSION SNOMED Code(s): 286 71141 (3) Tachycardia Status: Acute Code(s): R00.0 - TACHYCARDIA, UNSPECIFIED SNOMED Code(s): 5036331 Plan: Orthostatic hypotension: Presented with dizziness and orthostatic hypotension -Cardiology workup ordered -Defer management to cards team Hilar lymphadenopathy -CTA was obtained which was negative for pulmonary embolism. Bilateral hilar adenopathy was noted with borderline lymph nodes in the mediastinum. Moderate emphysematous changes. No lung masses or acute cardiopulmonary disease noted. -Patient denies any recent sicknesses or vaccines. Denies night sweats. Does report his appetite and weight fluctuations, recently was 165 pounds but states appetite has significantly improved and is back to his baseline weight of 180 pounds. Patient has a history of 35 pack year smoker, quitting 20 years ago. Denies hemoptysis. -Findings at this time are unspecific. Recommend repeat CT chest in 1-2 months to revaluate LAD. If persisting will discuss further evaluation and obtaining PET CT/biopsy pending repeat CT MGUS: -History as dictated in HPI -Has continued in f/u with stable disease. Counts stable -F/u scheduled on 11/[address] Fairchild Doctor attests: I performed a history and physical examination of this patient, developed impression and plan of care. Discussed with dictator. I agree with dictators note, documented as a scribe.
== END 2024-11-09 12:19 | disposition home or self-care (01) ==
LOC: EC 10:44 → 6NMEDSUR 17:05
PROVIDERS: ADMIT Internal Medicine; ATTEND Internal Medicine
DX: I95.1 Orthostatic hypotension (principal); R79.1 Abnormal coagulation profile; R00.0 Tachycardia, unspecified; R59.0 Localized enlarged lymph nodes; E11.65 Type 2 diabetes mellitus with hyperglycemia; I12.9 Hypertensive chronic kidney disease with stage 1 through stage 4 chronic kidney disease, or unspecified chronic kidney disease; N18.9 Chronic kidney disease, unspecified; E11.22 Type 2 diabetes mellitus with diabetic chronic kidney disease; E78.5 Hyperlipidemia, unspecified; J44.9 Chronic obstructive pulmonary disease, unspecified; D47.2 Monoclonal gammopathy; E11.51 Type 2 diabetes mellitus with diabetic peripheral angiopathy without gangrene; Z87.891 Personal history of nicotine dependence; Z95.1 Presence of aortocoronary bypass graft; Z79.02 Long term (current) use of antithrombotics/antiplatelets; Z79.4 Long term (current) use of insulin; Z79.82 Long term (current) use of aspirin; Z79.899 Other long term (current) drug therapy; Z88.5 Allergy status to narcotic agent
CPT/HCPCS: 96376; 96361 ×2; 96372 ×2; 96374; 99285; 36415; 93005; 93306; 85379; 80053 ×2; 84443; 82533; 83735; 84484; 85025 ×2; 85610; 85730; 83036; 71046; 71275; G0378 ×2; J1644 ×2; J3490 ×2; Q9967

== ENCOUNTER → 2024-12-07 | Outpatient (CLI) | payer MEDICARE ==
--- NOTE | 2024-12-07 13:08 | US ---
EXAMINATION TYPE: US kidneys/renal and bladder DATE OF EXAM: 12/07/2024 COMPARISON: CT 05/02/2021 CLINICAL INDICATION: Male, 59 years old with history of N18.31 CHRONIC KIDNEY DISEASE, STAGE 3A; CKD TECHNIQUE: Grayscale imaging of the bilateral kidneys and urinary bladder: FINDINGS: EXAM MEASUREMENTS: Right Kidney: 10.4 x 5.2 x 4.9 cm Left Kidney: 12.1 x 4.8 x 5.2 cm Post Void Residual Volume: 3.2 mL Right Kidney: No evidence of hydro, lower pole gassed out Left Kidney: No evidence of hydro, lower pole gassed out Bladder: wnl Bilateral Jets seen: No Normal Post Void Residual: Yes There is no evidence for hydronephrosis at this point in time. No nephrolithiasis is seen. No erlin s are identified. Corticomedullary differentiation is maintained bilaterally. The urinary bladder is anechoic. Normal postvoid residual. IMPRESSION: No hydronephrosis or nephrolithiasis. [facility], , 12/07/2024 1:05 PM
== END | disposition home or self-care (01) ==
LOC: RADUSWWP 12:35
PROVIDERS: ATTEND Internal Medicine Nephrology
DX: N18.31 Chronic kidney disease, stage 3a (principal)
CPT/HCPCS: 76770

== ENCOUNTER → 2024-12-20 | Outpatient (CLI) | payer MEDICARE, OTHER ==
--- NOTE | 2024-12-20 15:42 | CT ---
EXAMINATION TYPE: CT abdomen pelvis wo con DATE OF EXAM: 12/20/2024 COMPARISON: CTA abdomen pelvis dated 05/02/2021 CLINICAL INDICATION: Male, 59 years old with history of K43.2 INCISIONAL HERNIA WITHOUT OBSTRUCTION O R CHARISSE; PHH, HERNIA X 6 MONTHS, BILATERAL AORTA FEMORAL BYPASS TECHNIQUE: CT scan of the abdomen and pelvis is performed without oral or IV contrast. CT DLP: [address] CTDI: mGy Automated exposure control for dose reduction was used. FINDINGS: Within the limitations of a non-contrast study, the following observations are made. The lungs are clear. Gallbladder is normal and there is no gallstone, wall thickening, pericholecystic fluid or distention . There is no biliary ductal dilatation. There is no organomegaly of the liver, pancreas, spleen or adrenal glands. There are no renal calcifications or hydronephrosis. There is an inverted Y bypass graft and there is no retroperitoneal adenopathy or hemorrhage The bowel loops are normal in caliber is no evidence of obstruction. No inflammatory changes are iden tified in the mesentery and there is no free intraperitoneal air or fluid. There is no pelvic mass, free fluid, abscess or adenopathy. The osseous structures and soft tissues are unremarkable. There is a mesh hernia repair in the anterior midline abdomen. There is a 5.3 x 1.2 cm hernia fat-con taining hernia. There is no herniation of bowel. IMPRESSION: Midline fat-containing hernia in the region of mesh hernia repair. Inverted Y bypass graft. No other abnormalities within the abdomen or pelvis. [facility], , 12/20/2024 3:40 PM
== END | disposition home or self-care (01) ==
LOC: RADCTMAIN 14:53
PROVIDERS: ATTEND Surgery
DX: K43.2 Incisional hernia without obstruction or gangrene (principal)
CPT/HCPCS: 74176